=== PATIENT | male | born 1955 | race Caucasian/White ===

== ENCOUNTER → 2020-05-20 | Outpatient (CLI) | payer OTHER ==
[2016-03-12 13:14] VITALS: BP 116/76
[~2020-05-20] MED LIST: BYSTOLIC5 MG PO; CHOL100013 PO; CYCL10TA2 PO; GABA300C18 PO; HYDR-3165 PO; IBUP-1027 PO; LISI10TA2 PO
--- NOTE | 2020-05-20 18:16 | RAD ---
EXAMINATION: Ultrasound-guided fine-needle aspiration thyroid nodule, 05/20/2020 10:00 AM CLINICAL INDICATION: Right thyroid nodule COMPARISON: Thyroid ultrasound 04/26/2020 FINDINGS/TECHNIQUE: The purpose of the procedure, and risks and benefits were explained to the patient. Informed consent was obtained. A timeout was performed. Initial ultrasound images identified the right thyroid nodule. The skin overlying the patient's right neck was marked, prepped, and draped in standard sterile fashion. Skin and subcutaneous soft tissue were anesthetized with 1% lidocaine. Next, using continuous ultrasound guidance, four 25-gauge fine-needle aspiration samples were obtained of the thyroid nodule and given to the photographic laboratory technician for analysis. The skin was cleansed and covered with a dressing. The patient tolerated the procedure well and left in stable condition. IMPRESSION: Technically successful, ultrasound-guided fine needle aspiration of right thyroid nodule. Electronically signed by: Daniela Perea MD (05/20/2020 6:13 PM) [id number]
--- NOTE | 2020-05-24 11:14 | PATHOLOGY ---
Note [facility] Accession Number: [id number] TESTS RESULT FLAG UNITS REF RANGE LAB Clinician Provided Cytology Information No. of containers..01 Other (Miscellaneous) Source: RIGHT THYROID DIAGNOSIS: RIGHT THYROID NEGATIVE FOR MALIGNANT CELLS. B[place] CATEGORY II. SPECIMEN CONSISTS OF BENIGN FOLLICULAR CELLS, HEMOSIDERIN-LADEN MACROPHAGES, COLLOID, AND BLOOD. THIS PATTERN IS CONSISTENT WITH A BENIGN FOLLICULAR NODULE. THIS INTERPRETATION INCLUDES EVALUATION OF A CELL BLOCK. COMMENT, THIS CASE IS ALSO REVIEWED BY ANOTHER PATHOLOGIST DR. GRACIE VALENZUELA. THE MATERIAL ASPIRATED MAY NOT BE CAR CHECKER. SUGGEST RADIOLOGICAL AND CLINICAL CORRELATION AND FOLLOW UP CLINCALLY INDICATED. Pathologist ICD10: 02 E04.1 Signed out by: Artur Young MD, Pathologist NPI- [id number] Performed by: Tina Dumas Chief Relay Tester ([facility]) Gross description: 30ML, RED, 1TP, 1CB /LCS 05/20/2020 1830 Local FLAG LEGEND: L-Low Normal,H-High Normal,LL-Alert Low,HH-Alert High <-Panic Low,>-Panic High,A-Abnormal,AA-Critical Abnormal Performed at: [employer] [facility] [address] [place] [address] [address] [place] [address] Gregory Florentino MD, [facility] [address] Willem Hilario MD, Specimen Comment: A courtesy copy of this report has been sent to [phone], [phone] Specimen Comment: [id number] Specimen Comment: Report sent to / DR ACEVES Performed at: [address] [facility] [id number] [facility] [address], [place], [place] [id number] MD Gregory Florentino MD Phone: [phone]
== END ==
LOC: US 09:50
PROVIDERS: ATTEND Family Medicine
DX: E04.1 Nontoxic single thyroid nodule (principal); Z72.89 Other problems related to lifestyle; Z79.899 Other long term (current) drug therapy
CPT/HCPCS: 10005; 60300; 76942; 88173; 88305